=== PATIENT | male | born 1985 | race Caucasian/White ===

== ENCOUNTER 2018-08-08 07:39 | Emergency (ER) | payer SELFPAY ==
[2018-08-08] MEDS: FLUORESCEIN OPHTH 1 MG STRIP OU (07:45)
[2018-08-08] MEDS: TETRACAINE 0.5% OPHTH SOLN 4ML XX (07:45)
[2018-08-08] MEDS: ERYTHROMYCIN OPHTH OINT OS (08:05)
== END 2018-08-08 08:25 | disposition home or self-care (01) ==
LOC: M ED 07:39
DX: S05.8X2A Other injuries of left eye and orbit, initial encounter (principal); T15.02XA Foreign body in cornea, left eye, initial encounter; X58.XXXA Exposure to other specified factors, initial encounter; Y92.89 Other specified places as the place of occurrence of the external cause
CPT/HCPCS: 99283

== ENCOUNTER → 2020-08-20 | Outpatient (CLI) | payer SELFPAY ==
[~2020-08-20] MED LIST: ERYT5OIN25 OS
--- NOTE | 2020-08-20 16:24 | REP ---
INDICATION: PAIN IN RIGHT HAND. COMPARISON: None. TECHNIQUE: Four views. FINDINGS: Four views of the right hand demonstrate normal bones, joints, and soft tissues. No fracture or subluxation is seen. No opaque foreign body noted. IMPRESSION: Negative right hand series. <Electronically signed by Gary Winter > 08/20/20 [id number]
== END ==
LOC: M ADAMS 13:03
PROVIDERS: ATTEND Physician Assistant
DX: M79.641 Pain in right hand (principal)